=== PATIENT | male | born 1945 | race African-American/Black ===

== ENCOUNTER 2016-09-15 17:13 | Emergency (ER) | payer MEDICARE, OTHER ==
[~2016-09-15] VITALS: Ht 177.8 cm; Wt 112.9 kg
[~2016-09-15 17:13] MED LIST: AMLO5TAB2 PO; ERGO1CAP23 PO; ESOM40CA39 PO; FEBU80TA PO; FURO20TA3 PO; IBUP800T24 PO; LEVO150T10 PO; LISI-646 PO; LORA-352 PO
[2016-09-15 17:30] VITALS: BP 152/97
[2016-09-15 18:45] LABS: Basophils # (auto) 0.2 uL; Basophils % (auto) 3.9 % (0.0-2.0); DEFINITIVE VIEW TRANSMISSION; Eosinophils # (auto) 0.3 uL; Eosinophils % (auto) 4.7 % (0.0-7.0); Hematocrit 35.2 % (41.0-53.0); Hemoglobin 11.1 g/dL (13.5-17.5); Lymphocytes # (auto) 2.5 uL; Mean Corpuscular Hemoglobin 28.4 pg (28.0-32.0); Mean Corpuscular Hgb Conc. 31.5 g/dL (32.0-36.0); Mean Corpuscular Volume 90.3 fL (80.0-100.0); Mean Platelet Volume 9.1 fL (7.4-10.4); Monocytes # (auto) 0.5 uL; Monocytes % (auto) 7.8 % (0.0-12.0); Neutrophils # (auto) 2.6 uL; Neutrophils % (auto) 42.6 % (37.0-80.0); Platelet Count (auto) 240 10^3/uL (140-450); Red Cell Distribution Width 14.4 % (11.6-16.0); White Blood Cell 6.2 10^3/uL (4.4-10.8)
[2016-09-15 18:59] LABS: Albumin 3.6 g/dL (3.4-5.0); BUN/Creatinine Ratio 11.7; Calcium 8.5 mg/dL (8.5-10.1)
[2016-09-15 19:05] LABS: Bilirubin, Total 0.2 mg/dL (0.2-1.0)
== END 2016-09-15 23:39 | disposition left against medical advice (07) ==
LOC: ER 17:22
DX: R79.9 Abnormal finding of blood chemistry, unspecified (principal); Z53.21 Procedure and treatment not carried out due to patient leaving prior to being seen by health care provider
CPT/HCPCS: 36415; 80053; 84484; 85025; 93005

== ENCOUNTER → 2016-10-01 | Outpatient (CLI) | payer MEDICARE, OTHER ==
[2016-10-01 15:40] LABS: Basophils # (auto) 0.1 uL; Basophils % (auto) 0.9 % (0.0-2.0); Eosinophils # (auto) 0.3 uL; Hematocrit 37.6 % (41.0-53.0); Lymphocytes # (auto) 2.5 uL; Lymphocytes % (auto) 41.8 % (10.0-50.0); Mean Corpuscular Hemoglobin 28.7 pg (28.0-32.0); Mean Corpuscular Volume 89.8 fL (80.0-100.0); Mean Platelet Volume 8.9 fL (7.4-10.4); Monocytes # (auto) 0.4 uL; Monocytes % (auto) 6.8 % (0.0-12.0); Neutrophils # (auto) 2.7 uL; Neutrophils % (auto) 45.5 % (37.0-80.0); Platelet Count (auto) 238 10^3/uL (140-450); Red Cell Distribution Width 14.1 % (11.6-16.0); White Blood Cell 5.9 10^3/uL (4.4-10.8)
[2016-10-01 15:48] LABS: Urine Bilirubin Negative (Negative); Urine Blood Negative /uL (Negative); Urine Color Yellow (Yellow); Urine Glucose Normal (Normal); Urine Hyaline Cast FEW /lpf (0 - 2); Urine Ketone Negative (Negative); Urine Nitrite Negative (Negative); Urine RBC <1 /hpf (0 - 3); Urine Urobilinogen Normal (Negative); Urine pH 5.5 (5.0-8.0)
[2016-10-01 15:54] LABS: Calcium 9.4 mg/dL (8.5-10.1); Potassium 4.1 mmol/L (3.5-5.1)
[2016-10-01 15:57] LABS: INR 1.01 (0.9-1.15); Partial Thromboplastin Time 26.5 sec (22.64-33.71); Prothrombin Time 10.4 sec (9.37-12.3)
== END | disposition home or self-care (01) ==
LOC: LAB 15:18
DX: E78.5 Hyperlipidemia, unspecified (principal); I10 Essential (primary) hypertension; D68.9 Coagulation defect, unspecified; N39.0 Urinary tract infection, site not specified
CPT/HCPCS: 36415; 80048; 81001; 85025; 85049; 85610; 85730

== ENCOUNTER → 2016-10-24 | Outpatient (CLI) | payer MEDICARE, OTHER | END | disposition home or self-care (01) | LOC: OP 19:26 | PROVIDERS: ATTEND Psychiatry & Neurology Neurology | DX: G47.30 Sleep apnea, unspecified (principal) ==

== ENCOUNTER → 2016-11-14 | Outpatient (CLI) | payer MEDICARE, OTHER ==
[2016-11-14 08:20] LABS: Basophils # (auto) 0 uL; Basophils % (auto) 0.7 % (0.0-2.0); Eosinophils # (auto) 0.2 uL; Eosinophils % (auto) 5.7 % (0.0-7.0); Hematocrit 33.5 % (41.0-53.0); Hemoglobin 11.3 g/dL (13.5-17.5); Lymphocytes # (auto) 1.9 uL; Mean Corpuscular Hemoglobin 30.3 pg (28.0-32.0); Mean Corpuscular Hgb Conc. 33.6 g/dL (32.0-36.0); Mean Corpuscular Volume 90.1 fL (80.0-100.0); Mean Platelet Volume 9.2 fL (7.4-10.4); Monocytes # (auto) 0.5 uL; Monocytes % (auto) 12.3 % (0.0-12.0); Neutrophils # (auto) 1.6 uL; Neutrophils % (auto) 37.3 % (37.0-80.0); Platelet Count (auto) 206 10^3/uL (140-450); Red Cell Distribution Width 15.3 % (11.6-16.0); White Blood Cell 4.3 10^3/uL (4.4-10.8)
[2016-11-14 08:36] LABS: INR 0.98 (0.9-1.15); Partial Thromboplastin Time 25.7 sec (22.64-33.71); Prothrombin Time 10.1 sec (9.37-12.3)
[2016-11-14 08:59] LABS: Albumin 3.4 g/dL (3.4-5.0); BUN/Creatinine Ratio 15.1; Bilirubin, Total 0.4 mg/dL (0.2-1.0); Calcium 8.9 mg/dL (8.5-10.1); Potassium 4.2 mmol/L (3.5-5.1); Total Protein 7.7 g/dL (6.4-8.2)
== END | disposition home or self-care (01) ==
LOC: LAB 07:31
DX: M22.42 Chondromalacia patellae, left knee (principal); M17.12 Unilateral primary osteoarthritis, left knee
CPT/HCPCS: 36415; 80053; 85025; 85610; 85730

== ENCOUNTER → 2017-01-05 | Outpatient (CLI) | payer MEDICARE, OTHER | END | disposition home or self-care (01) | LOC: LAB 14:08 | PROVIDERS: ATTEND Urology | DX: R97.20 Elevated prostate specific antigen [PSA] (principal) | CPT/HCPCS: 84153; 84154 ==

== ENCOUNTER → 2017-01-14 | Outpatient (CLI) | payer MEDICARE, OTHER | END | disposition home or self-care (01) | LOC: LAB 14:50 | PROVIDERS: ATTEND Internal Medicine | DX: Z00.00 Encounter for general adult medical examination without abnormal findings (principal); E78.5 Hyperlipidemia, unspecified; E11.9 Type 2 diabetes mellitus without complications | CPT/HCPCS: 36415; 80061; 83036; 84443; 84550 ==

== ENCOUNTER → 2017-02-04 | Outpatient (CLI) | payer MEDICARE, OTHER | END | disposition home or self-care (01) | LOC: LAB 10:02 | PROVIDERS: ATTEND Internal Medicine | DX: E03.9 Hypothyroidism, unspecified (principal) | CPT/HCPCS: 36415; 84439; 84443; 84480 ==

== ENCOUNTER → 2017-11-06 | Outpatient (CLI) | payer MEDICARE, OTHER ==
[2017-11-06 11:49] LABS: Basophils # (auto) 0 uL; Eosinophils # (auto) 0.1 uL; Eosinophils % (auto) 3.2 % (0.0-7.0); Hematocrit 36.6 % (41.0-53.0); Hemoglobin 12.1 g/dL (13.5-17.5); Lymphocytes # (auto) 1.8 uL; Lymphocytes % (auto) 39.5 % (10.0-50.0); Mean Corpuscular Hemoglobin 30.5 pg (28.0-32.0); Mean Corpuscular Volume 92.4 fL (80.0-100.0); Monocytes # (auto) 0.4 uL; Monocytes % (auto) 8.7 % (0.0-12.0); Neutrophils # (auto) 2.2 uL; Neutrophils % (auto) 47.6 % (37.0-80.0); Nucleated Red Blood Cells % 0.2 %; Platelet Count (auto) 202 10^3/uL (140-450); Red Blood Cells 3.96 10^6/uL (4.5-5.90); Red Cell Distribution Width 13.6 % (11.8-14.3); White Blood Cell 4.6 10^3/uL (4.4-10.8)
[2017-11-06 12:35] LABS: Albumin 3.9 g/dL (3.4-5.0); BUN/Creatinine Ratio 14.6; Calcium 9.5 mg/dL (8.5-10.1); Potassium 4.4 mmol/L (3.5-5.1); Total Protein 8.8 g/dL (6.4-8.2); Uric Acid 8.8 mg/dL (3.5-7.2)
[2017-11-06 17:21] LABS: Urine Bacteria FEW /hpf (None Seen); Urine Blood Negative /uL (Negative); Urine Hyaline Cast FEW /lpf (0 - 2); Urine Mucus FEW (None Seen); Urine Specific Gravity 1.017 (1.001-1.035); Urine WBC 4 /hpf (0 - 3)
== END | disposition home or self-care (01) ==
LOC: LAB 11:27
PROVIDERS: ATTEND Physician Assistant
DX: E11.42 Type 2 diabetes mellitus with diabetic polyneuropathy (principal); E11.22 Type 2 diabetes mellitus with diabetic chronic kidney disease; N18.3 Chronic kidney disease, stage 3 (moderate); E03.9 Hypothyroidism, unspecified; I25.10 Atherosclerotic heart disease of native coronary artery without angina pectoris; N40.1 Benign prostatic hyperplasia with lower urinary tract symptoms; R97.20 Elevated prostate specific antigen [PSA]; Z87.39 Personal history of other diseases of the musculoskeletal system and connective tissue
CPT/HCPCS: 36415; 80053; 80061; 81001; 83036; 84153; 84154; 84443; 84550; 85025

== ENCOUNTER → 2017-12-10 | Outpatient (CLI) | payer MEDICARE, OTHER ==
[2017-12-10 11:37] LABS: Folate (Folic Acid) 12.22 ng/mL (5.38-24)
== END | disposition home or self-care (01) ==
LOC: LAB 10:32
PROVIDERS: ATTEND Psychiatry & Neurology Neurology
DX: E11.42 Type 2 diabetes mellitus with diabetic polyneuropathy (principal); E11.22 Type 2 diabetes mellitus with diabetic chronic kidney disease; I12.9 Hypertensive chronic kidney disease with stage 1 through stage 4 chronic kidney disease, or unspecified chronic kidney disease; N18.3 Chronic kidney disease, stage 3 (moderate)
CPT/HCPCS: 82607; 82746; 84155; 84165

== ENCOUNTER → 2018-05-20 | Outpatient (CLI) | payer MEDICARE, OTHER ==
[~2018-05-20] MED LIST changes: +AMLO5TAB13 PO; -AMLO5TAB2 PO
== END | disposition home or self-care (01) ==
LOC: LAB 15:55
PROVIDERS: ATTEND Urology
DX: R97.20 Elevated prostate specific antigen [PSA] (principal); I12.9 Hypertensive chronic kidney disease with stage 1 through stage 4 chronic kidney disease, or unspecified chronic kidney disease; N18.3 Chronic kidney disease, stage 3 (moderate)
CPT/HCPCS: 84154

== ENCOUNTER → 2019-01-25 | Outpatient (CLI) | payer MEDICARE, OTHER ==
[2019-01-25 10:36] LABS: Basophils # (auto) 0 uL; Basophils % (auto) 0.7 % (0.0-2.0); Eosinophils # (auto) 0.2 uL; Eosinophils % (auto) 5.3 % (0.0-7.0); Hematocrit 39.2 % (41.0-53.0); Hemoglobin 12.8 g/dL (13.5-17.5); Lymphocytes # (auto) 2.1 uL; Lymphocytes % (auto) 45.1 % (10.0-50.0); Mean Corpuscular Hemoglobin 29.7 pg (28.0-32.0); Mean Corpuscular Hgb Conc. 32.6 g/dL (32.0-36.0); Mean Corpuscular Volume 91.2 fL (80.0-100.0); Monocytes # (auto) 0.6 uL; Monocytes % (auto) 12.2 % (0.0-12.0); Neutrophils # (auto) 1.7 uL; Neutrophils % (auto) 36.7 % (37.0-80.0); Nucleated Red Blood Cells % 0.2 %; Platelet Count (auto) 237 10^3/uL (140-450); Red Cell Distribution Width 14.9 % (11.8-14.3); White Blood Cell 4.7 10^3/uL (4.4-10.8)
[2019-01-25 10:47] LABS: Albumin 3.6 g/dL (3.4-5.0); Calcium 9.2 mg/dL (8.5-10.1); Potassium 3.9 mmol/L (3.5-5.1); Urine Bacteria NONE SEEN /hpf (None Seen); Urine Blood Negative /uL (Negative); Urine Hyaline Cast MOD /lpf (0 - 2); Urine Mucus FEW (None Seen); Urine Specific Gravity 1.021 (1.001-1.035); Urine WBC 3 /hpf (0 - 3)
[2019-01-25 10:58] LABS: BUN/Creatinine Ratio 9.9
[2019-01-25 10:59] LABS: Bilirubin, Total 0.7 mg/dL (0.2-1.0); Total Protein 8.3 g/dL (6.4-8.2)
== END | disposition home or self-care (01) ==
LOC: LAB 09:31
PROVIDERS: ATTEND Physician Assistant
DX: I12.9 Hypertensive chronic kidney disease with stage 1 through stage 4 chronic kidney disease, or unspecified chronic kidney disease (principal); E11.22 Type 2 diabetes mellitus with diabetic chronic kidney disease; N18.3 Chronic kidney disease, stage 3 (moderate); E03.9 Hypothyroidism, unspecified; R97.20 Elevated prostate specific antigen [PSA]; K21.9 Gastro-esophageal reflux disease without esophagitis; I25.10 Atherosclerotic heart disease of native coronary artery without angina pectoris
CPT/HCPCS: 36415; 80053; 80061; 81001; 83036; 84153; 84154; 84443; 85025

== ENCOUNTER 2019-12-29 10:34 | Inpatient (IN) | payer MEDICARE, OTHER ==
[~2019-12-29] VITALS: Ht 180.3 cm; Wt 107.2 kg
[~2019-12-29 10:34] MED LIST changes: -AMLO5TAB13 PO; +AMLO5TAB15 PO
[2019-12-29] MEDS ORDERED: AZITHROMYCIN 500MG/ 250ML 250 ML IV ONE (11:00)
[2019-12-29] MEDS ORDERED: cefTRIAXone 1GM/50ML D5W 50 ML IV ONE (11:00)
[2019-12-29 11:22] LABS: Basophils # (auto) 0 10 ^3/uL (0-0.2); Basophils % (auto) 0.7 % (0.0-2.0); Eosinophils # (auto) 0.4 10 ^3/uL (0-0.8); Eosinophils % (auto) 6.7 % (0.0-7.0); Hematocrit 34.9 % (41.0-53.0); Hemoglobin 10.9 g/dL (13.5-17.5); Lymphocytes # (auto) 1.6 10 ^3/uL (0.4-5.4); Lymphocytes % (auto) 28.5 % (10.0-50.0); Mean Corpuscular Hgb Conc. 31.2 g/dL (32.0-36.0); Mean Corpuscular Volume 86.5 fL (80.0-100.0); Monocytes # (auto) 0.5 10 ^3/uL (0-1.3); Monocytes % (auto) 9.7 % (0.0-12.0); Neutrophils % (auto) 54.4 % (37.0-80.0); Nucleated Red Blood Cells % 2.7 %; Platelet Count (auto) 127 10^3/uL (140-450); Red Blood Cells 4.04 10^6/uL (4.5-5.90); Red Cell Distribution Width 17.7 % (11.8-14.3); White Blood Cell 5.6 10^3/uL (4.4-10.8)
[2019-12-29] MEDS ORDERED: ASCORBIC ACID 500 MG TAB PO ONE (12:00)
[2019-12-29] MEDS ORDERED: ZINC SULFATE 220mg CAP or TAB PO ONE (12:00)
[2019-12-29 12:07] LABS: Potassium 4.4 mmol/L (3.5-5.1)
[2019-12-29 12:19] LABS: Albumin 2.6 g/dL (3.4-5.0); BUN/Creatinine Ratio 11.6; Bilirubin, Total 1.8 mg/dL (0.2-1.0); Calcium 8.6 mg/dL (8.5-10.1); Total Protein 7.3 g/dL (6.4-8.2)
[2019-12-29] MEDS ORDERED: MORPHINE SULF INJ 2 MG/ML SYRINGE 1ML IV PRN (13:15)
[2019-12-29] MEDS ORDERED: NITROGLYCERIN 0.4 MG SL TAB SL PRN (13:15)
[2019-12-29] MEDS ORDERED: FUROSEMIDE 20 MG/2 ML VIAL IV ONE (13:30)
[2019-12-29] MEDS ORDERED: ALBUTEROL SULF 2.5 MG/0.5ML(0.5%) NEB SOLN NEB PRN (13:30)
[2019-12-29] MEDS ORDERED: LACTULOSE 20Gm/30ML SOLN PO PRN ×2 (13:30)
[2019-12-29] MEDS ORDERED: CARVEDILOL 3.125 MG TAB PO ONE (13:30)
[2019-12-29] MEDS ORDERED: DEXTROSE (50%) 50ML SYRG IV PRN (13:30)
[2019-12-29] MEDS ORDERED: ACETAMINOPHEN 500 MG TAB PO PRN (13:30)
[2019-12-29] MEDS ORDERED: PROMETHAZINE HCL 25 MG/ML 1ML IV PRN (13:30)
[2019-12-29] MEDS ORDERED: FUROSEMIDE 100 MG/10ML VIAL IV ONE (13:45)
[2019-12-29] MEDS: levoFLOXacin 750MG 150 ML IV SCH (14:00)
[2019-12-29] MEDS ORDERED: LEVOTHYROXINE SODIUM 50 MCG TAB PO ONE (15:00)
[2019-12-29] MEDS ORDERED: LEVOTHYROXINE SODIUM 100 MCG/5 ML INJ IV ONE (15:00)
[2019-12-29] MEDS ORDERED: ENOXAPARIN SOD 80 MG/0.8ML SYRINGE SC SCH (15:26)
[2019-12-29 16:00] VITALS: BP_SYST 106; BP_SYST 110; BP_DIAS 62; BP_DIAS 73
[2019-12-29] MEDS ORDERED: DIGOXIN (250MCG/ML) 2 ML AMPULE IV ONE (16:00)
[2019-12-29] MEDS: ACCU-CHEK COMFORT CURVE STRIP VI SCH ×2 (17:00→22:04)
[2019-12-29] MEDS: InsuLIN REG 1unit/0.01ml Soln (100units/ml) SC SCH ×2 (17:00→22:05)
[2019-12-29] MEDS: FUROSEMIDE 100 MG/10ML VIAL IV SCH (17:41)
[2019-12-29 18:01] LABS: Magnesium 2.3 mg/dL (1.6-2.6)
[2019-12-29 18:11] LABS: Free T3 1.75 pg/mL (2.3-4.2); Free T4 (Free Thyroxine) 1.71 ng/dL (0.89-1.76)
[2019-12-29 19:23] VITALS: BP 101/61
[2019-12-29 20:00] VITALS: BP 104/76
[2019-12-29] MEDS: ALBUTEROL SULF 2.5 MG/0.5ML(0.5%) NEB SOLN NEB SCH (21:43)
[2019-12-29] MEDS: IPRATROPIUM BROM 0.5 MG/2.5ML INH SOL NEB SCH (21:43)
[2019-12-29] MEDS: APIXABAN 2.5 MG TAB PO SCH (22:04)
[2019-12-29] MEDS: CARVEDILOL 3.125 MG TAB PO SCH (22:04)
[2019-12-29 23:26] LABS: Urine Bacteria FEW /hpf (None Seen); Urine Blood Negative /uL (Negative); Urine Hyaline Cast MANY /lpf (0 - 2); Urine Mucus FEW (None Seen); Urine Specific Gravity 1.013 (1.001-1.035); Urine WBC 3 /hpf (0 - 3)
[2019-12-29 23:44] LABS: Amphetamine Screen, Urine NEGATIVE (NEGATIVE); Barbiturate Scree,Urine NEGATIVE (NEGATIVE); Benzodiazephine Screen, Urine NEGATIVE (NEGATIVE); Cannabinoid Screen, Urine NEGATIVE (NEGATIVE); Cocaine Screen, Urine NEGATIVE (NEGATIVE); Opiate Scree,Urine NEGATIVE (NEGATIVE); Phencyclidine Screen, Urine NEGATIVE (NEGATIVE); Protein, Urine 68.5 mg/dL (0.0-11.9)
[2019-12-30] VITALS: BP 97/76
[2019-12-30 03:57] LABS: Basophils # (auto) 0 10 ^3/uL (0-0.2); Eosinophils # (auto) 0.4 10 ^3/uL (0-0.8); Hemoglobin 10.5 g/dL (13.5-17.5); Monocytes # (auto) 0.5 10 ^3/uL (0-1.3); White Blood Cell 4.5 10^3/uL (4.4-10.8)
[2019-12-30 03:59] LABS: Basophils % (auto) 0.8 % (0.0-2.0); Eosinophils % (auto) 9.3 % (0.0-7.0); Hematocrit 32.7 % (41.0-53.0); Lymphocytes # (auto) 1.6 10 ^3/uL (0.4-5.4); Lymphocytes % (auto) 36.8 % (10.0-50.0); Mean Corpuscular Hemoglobin 27.4 pg (28.0-32.0); Mean Corpuscular Hgb Conc. 32.1 g/dL (32.0-36.0); Mean Corpuscular Volume 85.6 fL (80.0-100.0); Neutrophils # (auto) 1.8 10 ^3/uL (1.6-8.6); Neutrophils % (auto) 41.1 % (37.0-80.0); Platelet Count (auto) 113 10^3/uL (140-450); Red Blood Cells 3.82 10^6/uL (4.5-5.90); Red Cell Distribution Width 18.1 % (11.8-14.3)
[2019-12-30 04:00] VITALS: BP 82/64
[2019-12-30 04:16] LABS: Albumin 2.4 g/dL (3.4-5.0); Calcium 8.1 mg/dL (8.5-10.1); Potassium 4.3 mmol/L (3.5-5.1)
[2019-12-30 04:20] LABS: BUN/Creatinine Ratio 12.1; Bilirubin, Total 1.2 mg/dL (0.2-1.0); Total Protein 6.8 g/dL (6.4-8.2)
[2019-12-30 04:36] LABS: Phosphorus 4.4 mg/dL (2.5-4.90); Uric Acid 15.7 mg/dL (3.5-7.2)
[2019-12-30] MEDS: FUROSEMIDE 100 MG/10ML VIAL IV SCH (06:03)
[2019-12-30] MEDS: InsuLIN REG 1unit/0.01ml Soln (100units/ml) SC SCH ×4 (06:03→22:00)
[2019-12-30] MEDS: LEVOTHYROXINE SODIUM 50 MCG TAB PO SCH (06:03)
[2019-12-30] MEDS: ACCU-CHEK COMFORT CURVE STRIP VI SCH ×4 (06:04→22:00)
[2019-12-30] MEDS: ALBUTEROL SULF 2.5 MG/0.5ML(0.5%) NEB SOLN NEB SCH ×3 (06:37→22:25)
[2019-12-30] MEDS: IPRATROPIUM BROM 0.5 MG/2.5ML INH SOL NEB SCH ×3 (06:37→22:25)
[2019-12-30 07:50] VITALS: BP 112/80
[2019-12-30] MEDS: amLODIPine BESYLATE 5 MG TAB PO SCH (09:35)
[2019-12-30] MEDS: APIXABAN 2.5 MG TAB PO SCH ×2 (09:36→22:00)
[2019-12-30] MEDS: CARVEDILOL 3.125 MG TAB PO SCH ×2 (09:36→22:00)
[2019-12-30] MEDS: NITROGLYCERIN 0.2MG/HR TOPICAL PATCH TD SCH (09:36)
[2019-12-30] MEDS ORDERED: FEBUXOSTAT 80 MG PO SCH (10:00)
[2019-12-30] MEDS: ALLOPURINOL 300 MG TAB PO SCH (10:45)
[2019-12-30 11:40] VITALS: BP 108/74
[2019-12-30] MEDS: DOPamine 1600MCG/ML D5W 250 ML IV SCH (12:29)
[2019-12-30] MEDS: BUMETANIDE INJECTION 12.5 MG in GIVE UN-DILUTED 0 ML IV SCH (12:50)
[2019-12-30] MEDS ORDERED: SODIUM CHLORIDE 0.9% 500 ML IV ONE (15:00)
[2019-12-30 15:40] VITALS: BP 84/64
[2019-12-31] VITALS (12 sets, daily range): BP systolic 95–113; BP diastolic 54–71
[2019-12-31] MEDS: ALBUTEROL SULF 2.5 MG/0.5ML(0.5%) NEB SOLN NEB SCH ×3 (06:09→21:45)
[2019-12-31] MEDS: IPRATROPIUM BROM 0.5 MG/2.5ML INH SOL NEB SCH ×3 (06:09→21:45)
[2019-12-31] MEDS: LEVOTHYROXINE SODIUM 50 MCG TAB PO SCH (07:00)
[2019-12-31] MEDS: InsuLIN REG 1unit/0.01ml Soln (100units/ml) SC SCH ×4 (07:00→21:56)
[2019-12-31] MEDS: BUMETANIDE INJECTION 12.5 MG in GIVE UN-DILUTED 0 ML IV SCH ×3 (07:29→21:56)
[2019-12-31] MEDS: ACCU-CHEK COMFORT CURVE STRIP VI SCH ×4 (07:29→21:56)
[2019-12-31] MEDS ORDERED: THROAT LOZENGES(CEPASTAT) MT PRN (08:30)
[2019-12-31] MEDS: DOPamine 1600MCG/ML D5W 250 ML IV SCH (08:32)
[2019-12-31] MEDS: amLODIPine BESYLATE 5 MG TAB PO SCH (09:23)
[2019-12-31] MEDS: CARVEDILOL 3.125 MG TAB PO SCH ×2 (09:23→22:00)
[2019-12-31] MEDS: NITROGLYCERIN 0.2MG/HR TOPICAL PATCH TD SCH (09:24)
[2019-12-31] MEDS: ALLOPURINOL 300 MG TAB PO SCH (09:28)
[2019-12-31] MEDS: APIXABAN 2.5 MG TAB PO SCH ×2 (09:28→21:53)
[2019-12-31 09:41] LABS: Basophils # (auto) 0 10 ^3/uL (0-0.2); Basophils % (auto) 0.8 % (0.0-2.0); Eosinophils # (auto) 0.4 10 ^3/uL (0-0.8); Hemoglobin 10.3 g/dL (13.5-17.5); Mean Corpuscular Hemoglobin 26.7 pg (28.0-32.0); Monocytes # (auto) 0.7 10 ^3/uL (0-1.3); Red Blood Cells 3.84 10^6/uL (4.5-5.90)
[2019-12-31 09:43] LABS: Eosinophils % (auto) 6.6 % (0.0-7.0); Hematocrit 32.6 % (41.0-53.0); Lymphocytes # (auto) 1.3 10 ^3/uL (0.4-5.4); Lymphocytes % (auto) 25.1 % (10.0-50.0); Mean Corpuscular Hgb Conc. 31.5 g/dL (32.0-36.0); Mean Corpuscular Volume 84.9 fL (80.0-100.0); Monocytes % (auto) 12.9 % (0.0-12.0); Neutrophils # (auto) 2.9 10 ^3/uL (1.6-8.6); Neutrophils % (auto) 54.6 % (37.0-80.0); Nucleated Red Blood Cells % 1.4 %; Platelet Count (auto) 137 10^3/uL (140-450); Red Cell Distribution Width 17.9 % (11.8-14.3); White Blood Cell 5.4 10^3/uL (4.4-10.8)
[2019-12-31] MEDS: NOREPINEPHRINE 8 MG/250ML KIT 250 ML IV SCH (09:45)
[2019-12-31 10:00] LABS: Albumin 2.6 g/dL (3.4-5.0); Calcium 8.4 mg/dL (8.5-10.1); Potassium 4.2 mmol/L (3.5-5.1)
[2019-12-31 10:03] LABS: Bilirubin, Total 1.3 mg/dL (0.2-1.0); Total Protein 7.3 g/dL (6.4-8.2)
[2019-12-31] MEDS ORDERED: ALBUMIN 25% 100 ML IV ONE (10:30)
[2019-12-31] MEDS: levoFLOXacin 750MG 150 ML IV SCH (13:24)
[2019-12-31] MEDS: ALBUMIN 25% 100 ML IV SCH (21:55)
[2020-01-01] VITALS (7 sets, daily range): BP systolic 88–108; BP diastolic 56–70
[2020-01-01] MEDS: ONDANSETRON HCL 4 MG/2 ML VIAL IV PRN ×3 (03:00→11:50)
[2020-01-01] MEDS: ACCU-CHEK COMFORT CURVE STRIP VI SCH ×4 (06:34→22:09)
[2020-01-01] MEDS: InsuLIN REG 1unit/0.01ml Soln (100units/ml) SC SCH ×4 (06:35→22:00)
[2020-01-01] MEDS: DOPamine 1600MCG/ML D5W 250 ML IV SCH (06:57)
[2020-01-01] MEDS: LEVOTHYROXINE SODIUM 50 MCG TAB PO SCH (06:57)
[2020-01-01] MEDS: ALBUTEROL SULF 2.5 MG/0.5ML(0.5%) NEB SOLN NEB SCH ×3 (06:59→21:52)
[2020-01-01] MEDS: IPRATROPIUM BROM 0.5 MG/2.5ML INH SOL NEB SCH ×3 (06:59→21:52)
[2020-01-01 07:08] LABS: Basophils # (auto) 0 10 ^3/uL (0-0.2); Basophils % (auto) 0.7 % (0.0-2.0); Eosinophils # (auto) 0.3 10 ^3/uL (0-0.8); Eosinophils % (auto) 5.2 % (0.0-7.0); Hematocrit 31.4 % (41.0-53.0); Hemoglobin 10.2 g/dL (13.5-17.5); Lymphocytes # (auto) 1.3 10 ^3/uL (0.4-5.4); Lymphocytes % (auto) 25.4 % (10.0-50.0); Mean Corpuscular Hemoglobin 27.6 pg (28.0-32.0); Mean Corpuscular Hgb Conc. 32.5 g/dL (32.0-36.0); Mean Corpuscular Volume 84.9 fL (80.0-100.0); Monocytes # (auto) 0.7 10 ^3/uL (0-1.3); Monocytes % (auto) 13.7 % (0.0-12.0); Neutrophils # (auto) 2.9 10 ^3/uL (1.6-8.6); Nucleated Red Blood Cells % 0.7 %; Platelet Count (auto) 116 10^3/uL (140-450); Red Blood Cells 3.69 10^6/uL (4.5-5.90); White Blood Cell 5.2 10^3/uL (4.4-10.8)
[2020-01-01 07:22] LABS: Potassium 4.4 mmol/L (3.5-5.1)
[2020-01-01 07:28] LABS: Albumin 2.9 g/dL (3.4-5.0); BUN/Creatinine Ratio 10.6; Calcium 8.6 mg/dL (8.5-10.1)
[2020-01-01 07:31] LABS: Bilirubin, Total 1.3 mg/dL (0.2-1.0); Total Protein 7.6 g/dL (6.4-8.2)
[2020-01-01] MEDS: NOREPINEPHRINE 8 MG/250ML KIT 250 ML IV SCH (09:45)
[2020-01-01] MEDS: amLODIPine BESYLATE 5 MG TAB PO SCH (10:00)
[2020-01-01] MEDS: NITROGLYCERIN 0.2MG/HR TOPICAL PATCH TD SCH (10:00)
[2020-01-01] MEDS: CARVEDILOL 3.125 MG TAB PO SCH ×2 (10:00→22:00)
[2020-01-01] MEDS: ALBUMIN 25% 100 ML IV SCH ×2 (10:32→22:08)
[2020-01-01] MEDS: APIXABAN 2.5 MG TAB PO SCH ×2 (10:33→22:08)
[2020-01-01] MEDS: DOCUSATE SOD 100 MG CAP PO SCH ×2 (10:33→22:08)
[2020-01-01] MEDS: PANTOPRAZOLE 40 MG/10 ML VIAL INJ IV SCH (10:33)
[2020-01-01] MEDS: ALLOPURINOL 300 MG TAB PO SCH (10:33)
[2020-01-01] MEDS: BUMETANIDE INJECTION 12.5 MG in GIVE UN-DILUTED 0 ML IV SCH (11:32)
[2020-01-02] VITALS: BP 99/64
[2020-01-02] MEDS: BUMETANIDE INJECTION 12.5 MG in GIVE UN-DILUTED 0 ML IV SCH ×2 (00:13→12:02)
[2020-01-02 03:12] LABS: Basophils # (auto) 0.1 10 ^3/uL (0-0.2); Eosinophils # (auto) 0.3 10 ^3/uL (0-0.8); Hemoglobin 9.9 g/dL (13.5-17.5); Neutrophils # (auto) 3.1 10 ^3/uL (1.6-8.6)
[2020-01-02 03:14] LABS: Basophils % (auto) 1.3 % (0.0-2.0); Eosinophils % (auto) 5.2 % (0.0-7.0); Lymphocytes # (auto) 1.6 10 ^3/uL (0.4-5.4); Mean Corpuscular Hemoglobin 26.9 pg (28.0-32.0); Mean Corpuscular Hgb Conc. 31.9 g/dL (32.0-36.0); Mean Corpuscular Volume 84.3 fL (80.0-100.0); Monocytes # (auto) 0.9 10 ^3/uL (0-1.3); Monocytes % (auto) 14.4 % (0.0-12.0); Neutrophils % (auto) 52.1 % (37.0-80.0); Nucleated Red Blood Cells % 0.9 %; Platelet Count (auto) 111 10^3/uL (140-450); Red Blood Cells 3.68 10^6/uL (4.5-5.90); Red Cell Distribution Width 17.8 % (11.8-14.3)
[2020-01-02 03:29] LABS: Albumin 3.1 g/dL (3.4-5.0); Calcium 8.5 mg/dL (8.5-10.1); Potassium 4.6 mmol/L (3.5-5.1)
[2020-01-02 03:33] LABS: BUN/Creatinine Ratio 12.5; Bilirubin, Total 1.4 mg/dL (0.2-1.0); Total Protein 7.7 g/dL (6.4-8.2)
[2020-01-02] MEDS: DOPamine 1600MCG/ML D5W 250 ML IV SCH (03:42)
[2020-01-02] MEDS: ALBUTEROL SULF 2.5 MG/0.5ML(0.5%) NEB SOLN NEB SCH ×3 (05:56→22:15)
[2020-01-02] MEDS: IPRATROPIUM BROM 0.5 MG/2.5ML INH SOL NEB SCH ×3 (05:56→22:15)
[2020-01-02] MEDS: ACCU-CHEK COMFORT CURVE STRIP VI SCH ×4 (06:32→21:51)
[2020-01-02] MEDS: InsuLIN REG 1unit/0.01ml Soln (100units/ml) SC SCH ×4 (06:33→21:52)
[2020-01-02] MEDS: LEVOTHYROXINE SODIUM 50 MCG TAB PO SCH (06:44)
[2020-01-02 08:00] VITALS: BP 124/69
[2020-01-02] MEDS: NOREPINEPHRINE 8 MG/250ML KIT 250 ML IV SCH (09:45)
[2020-01-02] MEDS: CARVEDILOL 3.125 MG TAB PO SCH ×2 (10:00→21:45)
[2020-01-02] MEDS: NITROGLYCERIN 0.2MG/HR TOPICAL PATCH TD SCH (10:00)
[2020-01-02] MEDS: amLODIPine BESYLATE 5 MG TAB PO SCH (10:00)
[2020-01-02] MEDS: ALBUMIN 25% 100 ML IV SCH (10:11)
[2020-01-02] MEDS: PANTOPRAZOLE 40 MG/10 ML VIAL INJ IV SCH (10:11)
[2020-01-02] MEDS: DOCUSATE SOD 100 MG CAP PO SCH ×2 (10:12→21:50)
[2020-01-02] MEDS: APIXABAN 2.5 MG TAB PO SCH ×2 (10:12→21:51)
[2020-01-02] MEDS: ALLOPURINOL 300 MG TAB PO SCH (10:12)
[2020-01-02 12:00] VITALS: BP 98/69
[2020-01-02] MEDS: levoFLOXacin 750MG 150 ML IV SCH (14:15)
[2020-01-02 14:50] LABS: INR 1.4 (0.9-1.15)
[2020-01-02 16:00] VITALS: BP 115/64
[2020-01-02 20:00] VITALS: BP 99/76
[2020-01-03] MEDS: BUMETANIDE INJECTION 12.5 MG in GIVE UN-DILUTED 0 ML IV SCH ×3 (03:04→23:52)
[2020-01-03] MEDS: DOPamine 1600MCG/ML D5W 250 ML IV SCH ×3 (03:11→23:57)
[2020-01-03 04:00] VITALS: BP 129/86
[2020-01-03 04:05] LABS: Basophils # (auto) 0 10 ^3/uL (0-0.2); Basophils % (auto) 0.6 % (0.0-2.0); Eosinophils # (auto) 0.2 10 ^3/uL (0-0.8); Eosinophils % (auto) 3.8 % (0.0-7.0); Hematocrit 32.1 % (41.0-53.0); Hemoglobin 10.3 g/dL (13.5-17.5); Lymphocytes # (auto) 1.5 10 ^3/uL (0.4-5.4); Lymphocytes % (auto) 24.5 % (10.0-50.0); Mean Corpuscular Hemoglobin 27.1 pg (28.0-32.0); Mean Corpuscular Volume 84.6 fL (80.0-100.0); Monocytes # (auto) 0.8 10 ^3/uL (0-1.3); Monocytes % (auto) 13.3 % (0.0-12.0); Neutrophils # (auto) 3.5 10 ^3/uL (1.6-8.6); Neutrophils % (auto) 57.8 % (37.0-80.0); Nucleated Red Blood Cells % 0.5 %; Platelet Count (auto) 108 10^3/uL (140-450)
[2020-01-03 04:25] LABS: Calcium 8.7 mg/dL (8.5-10.1); Potassium 4.5 mmol/L (3.5-5.1)
[2020-01-03 04:30] LABS: BUN/Creatinine Ratio 14.1; Bilirubin, Total 1.4 mg/dL (0.2-1.0); Total Protein 7.6 g/dL (6.4-8.2)
[2020-01-03] MEDS: IPRATROPIUM BROM 0.5 MG/2.5ML INH SOL NEB SCH ×3 (05:50→23:10)
[2020-01-03] MEDS: ALBUTEROL SULF 2.5 MG/0.5ML(0.5%) NEB SOLN NEB SCH ×3 (05:50→23:10)
[2020-01-03] MEDS: LACTULOSE 20Gm/30ML SOLN PO PRN ×2 (06:30→07:34)
[2020-01-03] MEDS: InsuLIN REG 1unit/0.01ml Soln (100units/ml) SC SCH ×4 (06:41→21:28)
[2020-01-03] MEDS: ACCU-CHEK COMFORT CURVE STRIP VI SCH ×4 (06:41→21:28)
[2020-01-03] MEDS: LEVOTHYROXINE SODIUM 50 MCG TAB PO SCH (06:41)
[2020-01-03 07:51] VITALS: BP 121/82
[2020-01-03] MEDS: traMADol HCL 50 MG TAB PO PRN ×2 (07:53→21:03)
[2020-01-03] MEDS: amLODIPine BESYLATE 5 MG TAB PO SCH (09:08)
[2020-01-03] MEDS: NITROGLYCERIN 0.2MG/HR TOPICAL PATCH TD SCH (09:08)
[2020-01-03] MEDS: levoFLOXacin 500 MG TAB PO SCH (09:33)
[2020-01-03] MEDS: PANTOPRAZOLE 40 MG/10 ML VIAL INJ IV SCH (09:33)
[2020-01-03] MEDS: ALLOPURINOL 300 MG TAB PO SCH (09:34)
[2020-01-03] MEDS: DOCUSATE SOD 100 MG CAP PO SCH ×2 (09:34→21:27)
[2020-01-03] MEDS: CARVEDILOL 3.125 MG TAB PO SCH ×2 (09:35→21:27)
[2020-01-03] MEDS: APIXABAN 2.5 MG TAB PO SCH ×2 (10:00→21:28)
[2020-01-03 12:00] VITALS: BP 121/82
[2020-01-03 14:45] VITALS: BP 128/90
[2020-01-03 17:00] VITALS: BP 138/77
[2020-01-03] MEDS: TEMAZEPAM 15 MG CAP PO PRN (21:28)
[2020-01-03 21:52] VITALS: BP 111/75
[2020-01-04 05:00] VITALS: BP 122/73
[2020-01-04] MEDS: LEVOTHYROXINE SODIUM 50 MCG TAB PO SCH (06:15)
[2020-01-04] MEDS: InsuLIN REG 1unit/0.01ml Soln (100units/ml) SC SCH ×4 (06:15→21:49)
[2020-01-04] MEDS: ACCU-CHEK COMFORT CURVE STRIP VI SCH ×4 (06:16→21:49)
[2020-01-04] MEDS: IPRATROPIUM BROM 0.5 MG/2.5ML INH SOL NEB SCH ×3 (07:19→21:35)
[2020-01-04] MEDS: ALBUTEROL SULF 2.5 MG/0.5ML(0.5%) NEB SOLN NEB SCH ×3 (07:19→21:35)
[2020-01-04 07:42] LABS: Albumin 2.7 g/dL (3.4-5.0); Calcium 8.9 mg/dL (8.5-10.1); Potassium 4.1 mmol/L (3.5-5.1); Uric Acid 14.9 mg/dL (3.5-7.2)
[2020-01-04 07:45] LABS: Bilirubin, Total 1.8 mg/dL (0.2-1.0); Total Protein 7.9 g/dL (6.4-8.2)
[2020-01-04 09:00] VITALS: BP_SYST 116; BP_SYST 120; BP_DIAS 61; BP_DIAS 68
[2020-01-04] MEDS: PANTOPRAZOLE 40 MG/10 ML VIAL INJ IV SCH (09:10)
[2020-01-04] MEDS: DOCUSATE SOD 100 MG CAP PO SCH ×2 (09:10→21:48)
[2020-01-04] MEDS: CARVEDILOL 3.125 MG TAB PO SCH ×2 (09:11→21:49)
[2020-01-04] MEDS: APIXABAN 2.5 MG TAB PO SCH ×2 (09:11→21:49)
[2020-01-04] MEDS: levoFLOXacin 500 MG TAB PO SCH (09:12)
[2020-01-04] MEDS: ALLOPURINOL 300 MG TAB PO SCH (09:12)
[2020-01-04] MEDS: NITROGLYCERIN 0.2MG/HR TOPICAL PATCH TD SCH (09:13)
[2020-01-04] MEDS: amLODIPine BESYLATE 5 MG TAB PO SCH (09:13)
[2020-01-04 12:31] VITALS: BP 108/68
[2020-01-04 15:19] VITALS: BP 108/68
[2020-01-04 16:39] VITALS: BP 106/77
[2020-01-04] MEDS: BUMETANIDE 2.5mg/10ml (0.25 mg/ml) INJ IV SCH (18:32)
[2020-01-04 22:00] VITALS: BP 114/71
[2020-01-04] MEDS: TEMAZEPAM 15 MG CAP PO PRN (22:08)
[2020-01-04] MEDS: DOPamine 1600MCG/ML D5W 250 ML IV SCH (22:08)
[2020-01-04] MEDS: traMADol HCL 50 MG TAB PO PRN (23:29)
[2020-01-05 05:43] VITALS: BP 104/67
[2020-01-05 06:06] LABS: Albumin 2.6 g/dL (3.4-5.0); Calcium 8.9 mg/dL (8.5-10.1); Potassium 3.9 mmol/L (3.5-5.1)
[2020-01-05] MEDS: LEVOTHYROXINE SODIUM 50 MCG TAB PO SCH (06:08)
[2020-01-05] MEDS: BUMETANIDE 2.5mg/10ml (0.25 mg/ml) INJ IV SCH ×2 (06:08→18:42)
[2020-01-05] MEDS: InsuLIN REG 1unit/0.01ml Soln (100units/ml) SC SCH ×4 (06:08→22:00)
[2020-01-05] MEDS: ACCU-CHEK COMFORT CURVE STRIP VI SCH ×4 (06:09→22:04)
[2020-01-05 06:11] LABS: BUN/Creatinine Ratio 19.7; Bilirubin, Total 1.6 mg/dL (0.2-1.0); Total Protein 7.5 g/dL (6.4-8.2)
[2020-01-05] MEDS: ALBUTEROL SULF 2.5 MG/0.5ML(0.5%) NEB SOLN NEB SCH ×3 (07:20→22:02)
[2020-01-05] MEDS: IPRATROPIUM BROM 0.5 MG/2.5ML INH SOL NEB SCH ×3 (07:20→22:02)
[2020-01-05 09:00] VITALS: BP 123/66
[2020-01-05] MEDS: NITROGLYCERIN 0.2MG/HR TOPICAL PATCH TD SCH (10:00)
[2020-01-05] MEDS: DOCUSATE SOD 100 MG CAP PO SCH ×2 (10:33→22:03)
[2020-01-05] MEDS: PANTOPRAZOLE 40 MG/10 ML VIAL INJ IV SCH (10:33)
[2020-01-05] MEDS: CARVEDILOL 3.125 MG TAB PO SCH ×2 (10:34→22:03)
[2020-01-05] MEDS: APIXABAN 2.5 MG TAB PO SCH ×2 (10:34→22:04)
[2020-01-05] MEDS: ALLOPURINOL 300 MG TAB PO SCH (10:35)
[2020-01-05] MEDS: amLODIPine BESYLATE 5 MG TAB PO SCH (10:35)
[2020-01-05] MEDS: levoFLOXacin 500 MG TAB PO SCH (10:35)
[2020-01-05 13:00] VITALS: BP 118/73
[2020-01-05] MEDS: traMADol HCL 50 MG TAB PO PRN (14:05)
[2020-01-05 17:00] VITALS: BP 112/63
[2020-01-05 22:00] VITALS: BP 104/66
[2020-01-06 05:00] VITALS: BP 107/73
[2020-01-06 06:03] LABS: Basophils # (auto) 0 10 ^3/uL (0-0.2); Basophils % (auto) 0.3 % (0.0-2.0); Eosinophils # (auto) 0.5 10 ^3/uL (0-0.8); Eosinophils % (auto) 8.2 % (0.0-7.0); Hematocrit 31.4 % (41.0-53.0); Hemoglobin 10.4 g/dL (13.5-17.5); Lymphocytes # (auto) 1.7 10 ^3/uL (0.4-5.4); Lymphocytes % (auto) 27.4 % (10.0-50.0); Mean Corpuscular Hemoglobin 27.4 pg (28.0-32.0); Mean Corpuscular Hgb Conc. 33.1 g/dL (32.0-36.0); Mean Corpuscular Volume 82.6 fL (80.0-100.0); Monocytes # (auto) 0.8 10 ^3/uL (0-1.3); Monocytes % (auto) 13.5 % (0.0-12.0); Neutrophils # (auto) 3.2 10 ^3/uL (1.6-8.6); Neutrophils % (auto) 50.6 % (37.0-80.0); Nucleated Red Blood Cells % 0.2 %; Platelet Count (auto) 113 10^3/uL (140-450); Red Blood Cells 3.81 10^6/uL (4.5-5.90); Red Cell Distribution Width 17.8 % (11.8-14.3); White Blood Cell 6.3 10^3/uL (4.4-10.8)
[2020-01-06] MEDS: LEVOTHYROXINE SODIUM 50 MCG TAB PO SCH (06:25)
[2020-01-06] MEDS: ACCU-CHEK COMFORT CURVE STRIP VI SCH ×4 (06:25→21:50)
[2020-01-06] MEDS: InsuLIN REG 1unit/0.01ml Soln (100units/ml) SC SCH ×4 (06:25→21:50)
[2020-01-06] MEDS: BUMETANIDE 2.5mg/10ml (0.25 mg/ml) INJ IV SCH ×2 (06:25→21:49)
[2020-01-06 06:29] LABS: Albumin 2.4 g/dL (3.4-5.0); Calcium 8.6 mg/dL (8.5-10.1)
[2020-01-06 06:33] LABS: BUN/Creatinine Ratio 22.3; Bilirubin, Total 1.4 mg/dL (0.2-1.0); Total Protein 7.3 g/dL (6.4-8.2)
[2020-01-06] MEDS: IPRATROPIUM BROM 0.5 MG/2.5ML INH SOL NEB SCH ×3 (06:53→22:20)
[2020-01-06] MEDS: ALBUTEROL SULF 2.5 MG/0.5ML(0.5%) NEB SOLN NEB SCH ×3 (06:53→22:21)
[2020-01-06] MEDS: traMADol HCL 50 MG TAB PO PRN (08:18)
[2020-01-06] MEDS ORDERED: DOPamine 1600MCG/ML D5W 250 ML IV SCH (09:00)
[2020-01-06] MEDS: PANTOPRAZOLE 40 MG/10 ML VIAL INJ IV SCH (09:41)
[2020-01-06] MEDS: levoFLOXacin 250 MG TAB PO SCH (09:42)
[2020-01-06] MEDS: ALLOPURINOL 100 MG TAB PO SCH (09:42)
[2020-01-06] MEDS: DOCUSATE SOD 100 MG CAP PO SCH ×2 (09:42→21:50)
[2020-01-06] MEDS: APIXABAN 2.5 MG TAB PO SCH ×2 (09:42→21:49)
[2020-01-06] MEDS: CARVEDILOL 3.125 MG TAB PO SCH ×2 (09:43→21:50)
[2020-01-06] MEDS: amLODIPine BESYLATE 5 MG TAB PO SCH (09:50)
[2020-01-06] MEDS: NITROGLYCERIN 0.2MG/HR TOPICAL PATCH TD SCH (09:51)
[2020-01-06] MEDS: ALBUMIN 25% 50 ML IV SCH ×2 (12:33→17:56)
[2020-01-06 13:00] VITALS: BP 120/67
[2020-01-06 17:17] VITALS: BP 109/69
[2020-01-06] MEDS: DOPamine 1600MCG/ML D5W 250 ML IV SCH ×2 (18:20→20:13)
[2020-01-06 22:00] VITALS: BP 102/74
[2020-01-07] MEDS: DOPamine 1600MCG/ML D5W 250 ML IV SCH ×2 (04:55→16:28)
[2020-01-07 05:00] VITALS: BP 107/67
[2020-01-07 06:43] LABS: Basophils # (auto) 0 10 ^3/uL (0-0.2); Eosinophils # (auto) 0.3 10 ^3/uL (0-0.8); Eosinophils % (auto) 5.5 % (0.0-7.0); Lymphocytes # (auto) 1.6 10 ^3/uL (0.4-5.4); Mean Corpuscular Hemoglobin 26.8 pg (28.0-32.0); Monocytes # (auto) 0.8 10 ^3/uL (0-1.3); White Blood Cell 5.9 10^3/uL (4.4-10.8)
[2020-01-07 06:45] LABS: Basophils % (auto) 0.7 % (0.0-2.0); Hemoglobin 10.4 g/dL (13.5-17.5); Lymphocytes % (auto) 26.5 % (10.0-50.0); Mean Corpuscular Hgb Conc. 32.6 g/dL (32.0-36.0); Mean Corpuscular Volume 82.2 fL (80.0-100.0); Monocytes % (auto) 13.5 % (0.0-12.0); Neutrophils # (auto) 3.2 10 ^3/uL (1.6-8.6); Neutrophils % (auto) 53.8 % (37.0-80.0); Nucleated Red Blood Cells % 0.3 %; Platelet Count (auto) 124 10^3/uL (140-450); Red Blood Cells 3.89 10^6/uL (4.5-5.90); Red Cell Distribution Width 17.8 % (11.8-14.3)
[2020-01-07] MEDS: LEVOTHYROXINE SODIUM 50 MCG TAB PO SCH (06:45)
[2020-01-07] MEDS: ACCU-CHEK COMFORT CURVE STRIP VI SCH ×4 (06:45→21:47)
[2020-01-07] MEDS: BUMETANIDE 2.5mg/10ml (0.25 mg/ml) INJ IV SCH ×2 (06:45→18:05)
[2020-01-07] MEDS: InsuLIN REG 1unit/0.01ml Soln (100units/ml) SC SCH ×4 (06:46→21:46)
[2020-01-07 06:58] LABS: Potassium 4.4 mmol/L (3.5-5.1)
[2020-01-07 07:03] LABS: Albumin 2.7 g/dL (3.4-5.0); BUN/Creatinine Ratio 22.1; Calcium 8.8 mg/dL (8.5-10.1)
[2020-01-07 07:05] LABS: Bilirubin, Total 1.6 mg/dL (0.2-1.0); Total Protein 7.6 g/dL (6.4-8.2)
[2020-01-07] MEDS: ALBUTEROL SULF 2.5 MG/0.5ML(0.5%) NEB SOLN NEB SCH ×3 (07:10→22:22)
[2020-01-07] MEDS: IPRATROPIUM BROM 0.5 MG/2.5ML INH SOL NEB SCH ×3 (07:10→22:22)
[2020-01-07 09:00] VITALS: BP 130/67
[2020-01-07] MEDS: ALLOPURINOL 100 MG TAB PO SCH (09:52)
[2020-01-07] MEDS: CARVEDILOL 3.125 MG TAB PO SCH ×2 (09:53→21:33)
[2020-01-07] MEDS: DOCUSATE SOD 100 MG CAP PO SCH ×2 (09:54→21:32)
[2020-01-07] MEDS: amLODIPine BESYLATE 5 MG TAB PO SCH (09:54)
[2020-01-07] MEDS: NITROGLYCERIN 0.2MG/HR TOPICAL PATCH TD SCH (09:55)
[2020-01-07] MEDS: levoFLOXacin 250 MG TAB PO SCH (09:56)
[2020-01-07] MEDS: APIXABAN 2.5 MG TAB PO SCH ×2 (09:56→21:32)
[2020-01-07] MEDS: PANTOPRAZOLE 40 MG/10 ML VIAL INJ IV SCH (09:56)
[2020-01-07] MEDS: LACTULOSE 20Gm/30ML SOLN PO PRN (11:48)
[2020-01-07 13:00] VITALS: BP 125/90
[2020-01-07] MEDS ORDERED: metOLazone 5 MG TAB PO ONE (13:30)
[2020-01-07 15:42] VITALS: BP 125/90
[2020-01-07 18:02] VITALS: BP 115/72
[2020-01-07 22:00] VITALS: BP 114/76
[2020-01-08] MEDS: DOPamine 1600MCG/ML D5W 250 ML IV SCH ×2 (02:27→14:32)
[2020-01-08 05:00] VITALS: BP 111/73
[2020-01-08] MEDS: BUMETANIDE 2.5mg/10ml (0.25 mg/ml) INJ IV SCH ×2 (05:52→18:14)
[2020-01-08] MEDS: LEVOTHYROXINE SODIUM 50 MCG TAB PO SCH (06:05)
[2020-01-08] MEDS: InsuLIN REG 1unit/0.01ml Soln (100units/ml) SC SCH ×4 (06:05→21:30)
[2020-01-08] MEDS: ACCU-CHEK COMFORT CURVE STRIP VI SCH ×4 (06:06→21:30)
[2020-01-08 06:10] LABS: Basophils # (auto) 0 10 ^3/uL (0-0.2); Eosinophils # (auto) 0.3 10 ^3/uL (0-0.8); Hemoglobin 11.2 g/dL (13.5-17.5); Lymphocytes # (auto) 1.3 10 ^3/uL (0.4-5.4); Nucleated Red Blood Cells % 0.2 %
[2020-01-08 06:12] LABS: Basophils % (auto) 0.8 % (0.0-2.0); Lymphocytes % (auto) 25.3 % (10.0-50.0); Mean Corpuscular Hgb Conc. 32.9 g/dL (32.0-36.0); Mean Corpuscular Volume 82.1 fL (80.0-100.0); Monocytes # (auto) 0.7 10 ^3/uL (0-1.3); Monocytes % (auto) 14.1 % (0.0-12.0); Neutrophils # (auto) 2.7 10 ^3/uL (1.6-8.6); Neutrophils % (auto) 53.8 % (37.0-80.0); Platelet Count (auto) 127 10^3/uL (140-450); Red Blood Cells 4.14 10^6/uL (4.5-5.90); Red Cell Distribution Width 17.9 % (11.8-14.3)
[2020-01-08 06:27] LABS: Albumin 2.7 g/dL (3.4-5.0); Calcium 9.1 mg/dL (8.5-10.1); Potassium 3.8 mmol/L (3.5-5.1)
[2020-01-08 06:31] LABS: BUN/Creatinine Ratio 24.7; Bilirubin, Total 1.6 mg/dL (0.2-1.0); Total Protein 7.9 g/dL (6.4-8.2)
[2020-01-08] MEDS: IPRATROPIUM BROM 0.5 MG/2.5ML INH SOL NEB SCH ×2 (06:40→14:20)
[2020-01-08] MEDS: ALBUTEROL SULF 2.5 MG/0.5ML(0.5%) NEB SOLN NEB SCH ×2 (06:40→14:20)
[2020-01-08 09:00] VITALS: BP 102/69
[2020-01-08] MEDS: traMADol HCL 50 MG TAB PO PRN (09:34)
[2020-01-08] MEDS: DOCUSATE SOD 100 MG CAP PO SCH ×2 (09:34→21:29)
[2020-01-08] MEDS: APIXABAN 2.5 MG TAB PO SCH ×2 (09:34→21:30)
[2020-01-08] MEDS: PANTOPRAZOLE 40 MG/10 ML VIAL INJ IV SCH (09:34)
[2020-01-08] MEDS: ALLOPURINOL 100 MG TAB PO SCH (09:34)
[2020-01-08] MEDS: amLODIPine BESYLATE 5 MG TAB PO SCH (09:35)
[2020-01-08] MEDS: CARVEDILOL 3.125 MG TAB PO SCH ×2 (09:35→21:30)
[2020-01-08] MEDS: levoFLOXacin 250 MG TAB PO SCH (09:36)
[2020-01-08] MEDS: NITROGLYCERIN 0.2MG/HR TOPICAL PATCH TD SCH (09:36)
[2020-01-08] MEDS: LACTULOSE 20Gm/30ML SOLN PO PRN (09:46)
[2020-01-08 13:00] VITALS: BP 104/63
[2020-01-08] MEDS ORDERED: metOLazone 5 MG TAB PO ONE (13:30)
[2020-01-08 17:00] VITALS: BP 100/63
[2020-01-08 22:07] VITALS: BP 104/59
[2020-01-09] MEDS: DOPamine 1600MCG/ML D5W 250 ML IV SCH ×3 (00:10→20:28)
[2020-01-09] MEDS: BUMETANIDE 2.5mg/10ml (0.25 mg/ml) INJ IV SCH (05:42)
[2020-01-09] MEDS: ALBUTEROL SULF 2.5 MG/0.5ML(0.5%) NEB SOLN NEB SCH ×4 (06:00→22:18)
[2020-01-09] MEDS: IPRATROPIUM BROM 0.5 MG/2.5ML INH SOL NEB SCH ×4 (06:00→22:18)
[2020-01-09] MEDS: InsuLIN REG 1unit/0.01ml Soln (100units/ml) SC SCH ×4 (06:05→22:00)
[2020-01-09] MEDS: LEVOTHYROXINE SODIUM 50 MCG TAB PO SCH (06:05)
[2020-01-09] MEDS: ACCU-CHEK COMFORT CURVE STRIP VI SCH ×4 (06:06→22:02)
[2020-01-09 06:17] LABS: Basophils # (auto) 0 10 ^3/uL (0-0.2); Basophils % (auto) 0.5 % (0.0-2.0); Eosinophils # (auto) 0.3 10 ^3/uL (0-0.8); Eosinophils % (auto) 5.6 % (0.0-7.0); Hematocrit 32.8 % (41.0-53.0); Hemoglobin 10.9 g/dL (13.5-17.5); Lymphocytes # (auto) 1.6 10 ^3/uL (0.4-5.4); Lymphocytes % (auto) 32.1 % (10.0-50.0); Mean Corpuscular Hemoglobin 27.1 pg (28.0-32.0); Mean Corpuscular Hgb Conc. 33.2 g/dL (32.0-36.0); Mean Corpuscular Volume 81.7 fL (80.0-100.0); Monocytes # (auto) 0.8 10 ^3/uL (0-1.3); Monocytes % (auto) 14.7 % (0.0-12.0); Neutrophils # (auto) 2.4 10 ^3/uL (1.6-8.6); Neutrophils % (auto) 47.1 % (37.0-80.0); Nucleated Red Blood Cells % 0.2 %; Platelet Count (auto) 133 10^3/uL (140-450); Red Blood Cells 4.01 10^6/uL (4.5-5.90); Red Cell Distribution Width 17.8 % (11.8-14.3); White Blood Cell 5.1 10^3/uL (4.4-10.8)
[2020-01-09 06:23] LABS: Albumin 2.6 g/dL (3.4-5.0); Calcium 9.1 mg/dL (8.5-10.1); Potassium 3.5 mmol/L (3.5-5.1)
[2020-01-09 06:27] LABS: Bilirubin, Total 1.6 mg/dL (0.2-1.0); Total Protein 7.7 g/dL (6.4-8.2)
[2020-01-09 08:10] VITALS: BP 114/65
[2020-01-09 08:56] VITALS: BP 114/65
[2020-01-09] MEDS: PANTOPRAZOLE 40 MG/10 ML VIAL INJ IV SCH (10:09)
[2020-01-09] MEDS: LACTULOSE 20Gm/30ML SOLN PO PRN ×2 (10:09→22:02)
[2020-01-09] MEDS: amLODIPine BESYLATE 5 MG TAB PO SCH (10:10)
[2020-01-09] MEDS: APIXABAN 2.5 MG TAB PO SCH ×2 (10:11→22:02)
[2020-01-09] MEDS: DOCUSATE SOD 100 MG CAP PO SCH ×2 (10:11→22:01)
[2020-01-09] MEDS: ALLOPURINOL 100 MG TAB PO SCH (10:11)
[2020-01-09] MEDS: CARVEDILOL 3.125 MG TAB PO SCH ×2 (10:11→22:00)
[2020-01-09] MEDS: levoFLOXacin 250 MG TAB PO SCH (10:11)
[2020-01-09] MEDS: NITROGLYCERIN 0.2MG/HR TOPICAL PATCH TD SCH (10:12)
[2020-01-09 12:37] VITALS: BP 115/72
[2020-01-09 17:24] VITALS: BP 117/66
[2020-01-09] MEDS: ONDANSETRON HCL 4 MG/2 ML VIAL IV PRN (22:03)
[2020-01-09 22:08] VITALS: BP 96/67
[2020-01-09] MEDS: TEMAZEPAM 15 MG CAP PO PRN (23:23)
[2020-01-10 05:27] VITALS: BP 93/64
[2020-01-10 06:05] LABS: Basophils # (auto) 0 10 ^3/uL (0-0.2); Basophils % (auto) 0.6 % (0.0-2.0); Eosinophils # (auto) 0.3 10 ^3/uL (0-0.8); Hematocrit 32.6 % (41.0-53.0); Hemoglobin 10.7 g/dL (13.5-17.5); Lymphocytes # (auto) 1.4 10 ^3/uL (0.4-5.4); Lymphocytes % (auto) 27.1 % (10.0-50.0); Mean Corpuscular Hemoglobin 26.8 pg (28.0-32.0); Mean Corpuscular Hgb Conc. 32.8 g/dL (32.0-36.0); Mean Corpuscular Volume 81.7 fL (80.0-100.0); Monocytes # (auto) 0.8 10 ^3/uL (0-1.3); Neutrophils # (auto) 2.6 10 ^3/uL (1.6-8.6); Neutrophils % (auto) 50.3 % (37.0-80.0); Nucleated Red Blood Cells % 0.2 %; Platelet Count (auto) 140 10^3/uL (140-450); Red Blood Cells 3.98 10^6/uL (4.5-5.90); Red Cell Distribution Width 17.9 % (11.8-14.3); White Blood Cell 5.1 10^3/uL (4.4-10.8)
[2020-01-10] MEDS: LEVOTHYROXINE SODIUM 50 MCG TAB PO SCH (06:10)
[2020-01-10] MEDS: InsuLIN REG 1unit/0.01ml Soln (100units/ml) SC SCH ×4 (06:10→21:23)
[2020-01-10] MEDS: ACCU-CHEK COMFORT CURVE STRIP VI SCH ×4 (06:11→21:23)
[2020-01-10 06:24] LABS: Calcium 9.2 mg/dL (8.5-10.1); Potassium 3.4 mmol/L (3.5-5.1)
[2020-01-10 06:28] LABS: BUN/Creatinine Ratio 25.6
[2020-01-10] MEDS: IPRATROPIUM BROM 0.5 MG/2.5ML INH SOL NEB SCH ×3 (06:28→22:51)
[2020-01-10] MEDS: ALBUTEROL SULF 2.5 MG/0.5ML(0.5%) NEB SOLN NEB SCH ×3 (06:28→22:51)
[2020-01-10 08:53] VITALS: BP 106/73
[2020-01-10] MEDS ORDERED: ALBUMIN 25% 50 ML IV ONE (09:15)
[2020-01-10] MEDS: PANTOPRAZOLE 40 MG/10 ML VIAL INJ IV SCH (09:18)
[2020-01-10] MEDS: LACTULOSE 20Gm/30ML SOLN PO PRN (09:18)
[2020-01-10] MEDS: levoFLOXacin 250 MG TAB PO SCH (09:18)
[2020-01-10] MEDS: NITROGLYCERIN 0.2MG/HR TOPICAL PATCH TD SCH (09:20)
[2020-01-10] MEDS: amLODIPine BESYLATE 5 MG TAB PO SCH (09:21)
[2020-01-10] MEDS: APIXABAN 2.5 MG TAB PO SCH ×2 (09:22→20:30)
[2020-01-10] MEDS: CARVEDILOL 3.125 MG TAB PO SCH ×2 (09:22→21:38)
[2020-01-10] MEDS: ALLOPURINOL 100 MG TAB PO SCH (09:23)
[2020-01-10] MEDS: DOCUSATE SOD 100 MG CAP PO SCH ×2 (09:23→20:29)
[2020-01-10] MEDS: DOPamine 1600MCG/ML D5W 250 ML IV SCH ×2 (09:24→21:22)
[2020-01-10] MEDS ORDERED: BUMETANIDE 2.5mg/10ml (0.25 mg/ml) INJ IV SCH (10:00)
[2020-01-10] MEDS: ACETYLCYSTEINE ORAL for CIN 20%(200MG/ML) 4ML PO SCH ×2 (11:57→21:23)
[2020-01-10] MEDS ORDERED: HYDROcodone-ACET 5/325MG TAB PO PRN (12:30)
[2020-01-10 12:46] VITALS: BP 100/65
[2020-01-10 16:52] VITALS: BP 112/72
[2020-01-10] MEDS ORDERED: POLYETHYLENE GLYCOL 17 GM PWDR PO ONE (17:30)
[2020-01-10] MEDS ORDERED: BISACODYL 10 MG RECT SUPP PR ONE (17:30)
[2020-01-10] MEDS ORDERED: FLEET ENEMA(ADULT) 135 ML PR ONE (20:00)
[2020-01-10 22:00] VITALS: BP 110/61
[2020-01-11] MEDS ORDERED: SODIUM CHLORIDE 0.9% 500 ML IV ONE (00:01)
[2020-01-11 05:05] VITALS: BP 108/65
[2020-01-11 05:20] LABS: Basophils # (auto) 0 10 ^3/uL (0-0.2); Basophils % (auto) 0.6 % (0.0-2.0); Eosinophils # (auto) 0.3 10 ^3/uL (0-0.8); Eosinophils % (auto) 4.1 % (0.0-7.0); Hematocrit 32.6 % (41.0-53.0); Hemoglobin 10.8 g/dL (13.5-17.5); Lymphocytes # (auto) 1.5 10 ^3/uL (0.4-5.4); Lymphocytes % (auto) 24.5 % (10.0-50.0); Mean Corpuscular Hemoglobin 27.1 pg (28.0-32.0); Mean Corpuscular Hgb Conc. 33.1 g/dL (32.0-36.0); Mean Corpuscular Volume 81.9 fL (80.0-100.0); Monocytes # (auto) 0.9 10 ^3/uL (0-1.3); Monocytes % (auto) 14.6 % (0.0-12.0); Neutrophils # (auto) 3.5 10 ^3/uL (1.6-8.6); Neutrophils % (auto) 56.2 % (37.0-80.0); Nucleated Red Blood Cells % 0.1 %; Platelet Count (auto) 154 10^3/uL (140-450); Red Blood Cells 3.98 10^6/uL (4.5-5.90); Red Cell Distribution Width 17.7 % (11.8-14.3); White Blood Cell 6.2 10^3/uL (4.4-10.8)
[2020-01-11 05:35] LABS: INR 1.49 (0.9-1.15); Partial Thromboplastin Time 42.3 sec (23.64-32.05)
[2020-01-11 05:36] LABS: BUN/Creatinine Ratio 25.3; Calcium 8.9 mg/dL (8.5-10.1); Potassium 3.6 mmol/L (3.5-5.1)
[2020-01-11] MEDS: IPRATROPIUM BROM 0.5 MG/2.5ML INH SOL NEB SCH ×3 (06:00→22:50)
[2020-01-11] MEDS: ALBUTEROL SULF 2.5 MG/0.5ML(0.5%) NEB SOLN NEB SCH ×3 (06:00→22:50)
[2020-01-11] MEDS: ACCU-CHEK COMFORT CURVE STRIP VI SCH ×4 (06:47→22:50)
[2020-01-11] MEDS: LEVOTHYROXINE SODIUM 50 MCG TAB PO SCH (06:52)
[2020-01-11] MEDS ORDERED: SODIUM CHL 0.9% 1000 ML BAG XX ONE (07:00)
[2020-01-11] MEDS: InsuLIN REG 1unit/0.01ml Soln (100units/ml) SC SCH ×4 (07:00→22:00)
[2020-01-11] MEDS: DOPamine 1600MCG/ML D5W 250 ML IV SCH ×2 (07:02→17:31)
[2020-01-11 09:00] VITALS: BP 102/74
[2020-01-11] MEDS ORDERED: HEPARIN SODIUM (PORCINE) 5000 UNITS/ML 1ML VIAL ONE ×2 (09:20→21:47)
[2020-01-11] MEDS ORDERED: fentaNYL CITRATE 100 MCG/2 ML VL ONE (09:20)
[2020-01-11] MEDS ORDERED: MIDAZOLAM HCL 1MG/1ML-2 ML VIAL ONE (09:21)
[2020-01-11] MEDS ORDERED: ANGIOMAX 250 MG VIAL IV ONE (09:24)
[2020-01-11] MEDS ORDERED: VERAPAMIL 2.5MG/ML INJ 2ML VIAL IV ONE (09:24)
[2020-01-11] MEDS ORDERED: SODIUM CHL 0.9% 0 ML ONE (09:25)
[2020-01-11] MEDS ORDERED: LIDOCAINE 2%HCL (LOCAL ANESTH.) INJ 20ML MDV ONE (09:25)
[2020-01-11] MEDS ORDERED: IODIXANOL 320MG/ML 100ML BTL IV ONE (09:25)
[2020-01-11] MEDS: NITROGLYCERIN 0.2MG/HR TOPICAL PATCH TD SCH (10:00)
[2020-01-11] MEDS: APIXABAN 2.5 MG TAB PO SCH (10:00)
[2020-01-11] MEDS: amLODIPine BESYLATE 5 MG TAB PO SCH (10:00)
[2020-01-11] MEDS ORDERED: PHENYLEPHRINE IV 0 ML IV ONE (10:29)
[2020-01-11] MEDS: POLYETHYLENE GLYCOL 17 GM PWDR PO SCH (12:26)
[2020-01-11] MEDS: levoFLOXacin 250 MG TAB PO SCH (12:27)
[2020-01-11] MEDS: DOCUSATE SOD 100 MG CAP PO SCH ×2 (12:27→23:42)
[2020-01-11] MEDS: CARVEDILOL 3.125 MG TAB PO SCH ×2 (12:28→23:42)
[2020-01-11] MEDS: PANTOPRAZOLE 40 MG/10 ML VIAL INJ IV SCH (12:28)
[2020-01-11] MEDS: ALLOPURINOL 100 MG TAB PO SCH (12:28)
[2020-01-11 17:00] VITALS: BP 92/52
[2020-01-11] MEDS ORDERED: HEPARIN SODIUM (PORCINE) 5000 UNITS/ML 1ML VIAL IV ONE (17:00)
[2020-01-11] MEDS: ACETYLCYSTEINE ORAL for CIN 20%(200MG/ML) 4ML PO SCH ×2 (17:00→23:42)
[2020-01-11 18:31] VITALS: BP 106/62
[2020-01-11] MEDS ORDERED: EPOETIN ALFA 10,000 UNIT/1 ML VIAL SC ONE (21:00)
[2020-01-11 21:29] VITALS: BP 97/73
[2020-01-11] MEDS ORDERED: HEPARIN 1,000 UNITS/ml 1ML VIAL ONE ×2 (21:55→21:58)
[2020-01-11 22:56] VITALS: BP 93/69
[2020-01-12] MEDS: DOPamine 1600MCG/ML D5W 250 ML IV SCH ×2 (05:27→17:52)
[2020-01-12 05:28] VITALS: BP 103/64
[2020-01-12] MEDS: LEVOTHYROXINE SODIUM 50 MCG TAB PO SCH (06:18)
[2020-01-12] MEDS: InsuLIN REG 1unit/0.01ml Soln (100units/ml) SC SCH ×4 (06:20→22:00)
[2020-01-12] MEDS: ACCU-CHEK COMFORT CURVE STRIP VI SCH ×4 (06:22→22:00)
[2020-01-12] MEDS: ALBUTEROL SULF 2.5 MG/0.5ML(0.5%) NEB SOLN NEB SCH ×3 (06:57→22:17)
[2020-01-12] MEDS: IPRATROPIUM BROM 0.5 MG/2.5ML INH SOL NEB SCH ×3 (06:57→22:17)
[2020-01-12 07:06] LABS: Basophils # (auto) 0 10 ^3/uL (0-0.2); Basophils % (auto) 0.8 % (0.0-2.0); Eosinophils # (auto) 0.2 10 ^3/uL (0-0.8); Hematocrit 34.3 % (41.0-53.0); Lymphocytes # (auto) 1.4 10 ^3/uL (0.4-5.4); Lymphocytes % (auto) 26.1 % (10.0-50.0); Mean Corpuscular Hemoglobin 26.3 pg (28.0-32.0); Mean Corpuscular Hgb Conc. 32.1 g/dL (32.0-36.0); Mean Corpuscular Volume 81.9 fL (80.0-100.0); Monocytes # (auto) 0.8 10 ^3/uL (0-1.3); Monocytes % (auto) 14.7 % (0.0-12.0); Neutrophils # (auto) 2.9 10 ^3/uL (1.6-8.6); Neutrophils % (auto) 54.4 % (37.0-80.0); Nucleated Red Blood Cells % 0.1 %; Platelet Count (auto) 159 10^3/uL (140-450); Red Blood Cells 4.18 10^6/uL (4.5-5.90); Red Cell Distribution Width 17.9 % (11.8-14.3); White Blood Cell 5.4 10^3/uL (4.4-10.8)
[2020-01-12 07:28] LABS: Albumin 2.6 g/dL (3.4-5.0); Calcium 8.4 mg/dL (8.5-10.1); Potassium 3.8 mmol/L (3.5-5.1)
[2020-01-12 07:32] LABS: BUN/Creatinine Ratio 21.5; Bilirubin, Total 1.8 mg/dL (0.2-1.0); Total Protein 7.8 g/dL (6.4-8.2)
[2020-01-12] MEDS ORDERED: ALBUMIN 25% 100 ML IV ONE (08:45)
[2020-01-12] MEDS ORDERED: SODIUM CHL 0.9% 1000 ML BAG XX ONE (08:45)
[2020-01-12] MEDS: PANTOPRAZOLE 40 MG/10 ML VIAL INJ IV SCH (09:39)
[2020-01-12] MEDS: FUROSEMIDE 100 MG/10ML VIAL IV SCH (09:39)
[2020-01-12] MEDS: DOCUSATE SOD 100 MG CAP PO SCH ×2 (09:41→22:42)
[2020-01-12] MEDS: ALLOPURINOL 100 MG TAB PO SCH (09:41)
[2020-01-12] MEDS: amLODIPine BESYLATE 5 MG TAB PO SCH (09:42)
[2020-01-12] MEDS: CARVEDILOL 3.125 MG TAB PO SCH ×2 (09:42→22:42)
[2020-01-12] MEDS: POLYETHYLENE GLYCOL 17 GM PWDR PO SCH (09:43)
[2020-01-12] MEDS: levoFLOXacin 250 MG TAB PO SCH (09:43)
[2020-01-12] MEDS: NITROGLYCERIN 0.2MG/HR TOPICAL PATCH TD SCH (09:44)
[2020-01-12 09:50] LABS: Hepatitis A Ab IgM Negative; Hepatitis B Core IgM Negative; Hepatitis B Surface Antigen Negative (Negative); Hepatitis C Antibody Negative (Negative)
[2020-01-12 13:00] VITALS: BP 95/58
[2020-01-12] MEDS ORDERED: METOPROLOL TARTRATE 1MG/1ML-5ML VIAL IV ONE (13:45)
[2020-01-12 17:00] VITALS: BP 119/63
[2020-01-12 20:00] VITALS: BP 119/69
[2020-01-12 21:31] VITALS: BP 119/69
[2020-01-12] MEDS: SACUBITRIL-VALSARTAN 24mg/26mg TAB PO SCH (22:42)
[2020-01-13] MEDS: DOPamine 1600MCG/ML D5W 250 ML IV SCH ×2 (03:36→16:16)
[2020-01-13 05:52] VITALS: BP 118/71
[2020-01-13] MEDS: IPRATROPIUM BROM 0.5 MG/2.5ML INH SOL NEB SCH ×3 (06:05→22:03)
[2020-01-13] MEDS: ALBUTEROL SULF 2.5 MG/0.5ML(0.5%) NEB SOLN NEB SCH ×3 (06:05→22:03)
[2020-01-13] MEDS: InsuLIN REG 1unit/0.01ml Soln (100units/ml) SC SCH ×4 (06:12→22:00)
[2020-01-13] MEDS: ACCU-CHEK COMFORT CURVE STRIP VI SCH ×4 (06:14→22:15)
[2020-01-13] MEDS: LEVOTHYROXINE SODIUM 50 MCG TAB PO SCH (06:14)
[2020-01-13 07:07] LABS: Basophils # (auto) 0 10 ^3/uL (0-0.2); Eosinophils # (auto) 0.2 10 ^3/uL (0-0.8); Hemoglobin 11.4 g/dL (13.5-17.5); Nucleated Red Blood Cells % 0.2 %
[2020-01-13 07:09] LABS: Basophils % (auto) 0.8 % (0.0-2.0); Eosinophils % (auto) 3.6 % (0.0-7.0); Hematocrit 36.3 % (41.0-53.0); Lymphocytes # (auto) 1.5 10 ^3/uL (0.4-5.4); Lymphocytes % (auto) 30.8 % (10.0-50.0); Mean Corpuscular Hgb Conc. 31.5 g/dL (32.0-36.0); Mean Corpuscular Volume 82.5 fL (80.0-100.0); Monocytes # (auto) 0.7 10 ^3/uL (0-1.3); Monocytes % (auto) 13.9 % (0.0-12.0); Neutrophils # (auto) 2.5 10 ^3/uL (1.6-8.6); Neutrophils % (auto) 50.9 % (37.0-80.0); Platelet Count (auto) 163 10^3/uL (140-450)
[2020-01-13 07:28] LABS: Albumin 2.9 g/dL (3.4-5.0); Calcium 8.6 mg/dL (8.5-10.1); Potassium 3.3 mmol/L (3.5-5.1)
[2020-01-13 07:33] LABS: Bilirubin, Total 2.1 mg/dL (0.2-1.0)
[2020-01-13 08:55] VITALS: BP 118/71
[2020-01-13 09:00] VITALS: BP 103/76
[2020-01-13] MEDS: ALLOPURINOL 100 MG TAB PO SCH (09:15)
[2020-01-13] MEDS: CARVEDILOL 3.125 MG TAB PO SCH ×2 (09:15→22:15)
[2020-01-13] MEDS: levoFLOXacin 250 MG TAB PO SCH (09:16)
[2020-01-13] MEDS: DOCUSATE SOD 100 MG CAP PO SCH ×2 (09:16→22:17)
[2020-01-13] MEDS: SACUBITRIL-VALSARTAN 24mg/26mg TAB PO SCH ×2 (09:16→22:11)
[2020-01-13] MEDS: POLYETHYLENE GLYCOL 17 GM PWDR PO SCH (09:17)
[2020-01-13] MEDS: PANTOPRAZOLE 40 MG/10 ML VIAL INJ IV SCH (09:18)
[2020-01-13] MEDS: amLODIPine BESYLATE 5 MG TAB PO SCH (09:18)
[2020-01-13] MEDS: FUROSEMIDE 100 MG/10ML VIAL IV SCH (09:19)
[2020-01-13] MEDS: NITROGLYCERIN 0.2MG/HR TOPICAL PATCH TD SCH (09:19)
[2020-01-13 12:41] VITALS: BP 124/66
[2020-01-13 17:00] VITALS: BP 107/71
[2020-01-13 22:00] VITALS: BP 103/71
[2020-01-14] MEDS: DOPamine 1600MCG/ML D5W 250 ML IV SCH ×2 (02:19→14:59)
[2020-01-14 05:00] VITALS: BP 109/75
[2020-01-14] MEDS: InsuLIN REG 1unit/0.01ml Soln (100units/ml) SC SCH ×4 (06:09→22:00)
[2020-01-14] MEDS: LEVOTHYROXINE SODIUM 50 MCG TAB PO SCH (06:10)
[2020-01-14] MEDS: ACCU-CHEK COMFORT CURVE STRIP VI SCH ×4 (06:10→22:30)
[2020-01-14] MEDS: ALBUTEROL SULF 2.5 MG/0.5ML(0.5%) NEB SOLN NEB SCH ×3 (06:14→22:24)
[2020-01-14] MEDS: IPRATROPIUM BROM 0.5 MG/2.5ML INH SOL NEB SCH ×3 (06:14→22:24)
[2020-01-14 07:09] LABS: Basophils # (auto) 0 10 ^3/uL (0-0.2); Eosinophils # (auto) 0.3 10 ^3/uL (0-0.8); Hemoglobin 11.2 g/dL (13.5-17.5); Nucleated Red Blood Cells % 0.2 %
[2020-01-14 07:12] LABS: Basophils % (auto) 0.5 % (0.0-2.0); Eosinophils % (auto) 5.8 % (0.0-7.0); Hematocrit 34.3 % (41.0-53.0); Lymphocytes # (auto) 1.7 10 ^3/uL (0.4-5.4); Lymphocytes % (auto) 28.7 % (10.0-50.0); Mean Corpuscular Hemoglobin 26.9 pg (28.0-32.0); Mean Corpuscular Hgb Conc. 32.5 g/dL (32.0-36.0); Mean Corpuscular Volume 82.6 fL (80.0-100.0); Monocytes # (auto) 0.9 10 ^3/uL (0-1.3); Monocytes % (auto) 15.5 % (0.0-12.0); Neutrophils # (auto) 2.9 10 ^3/uL (1.6-8.6); Neutrophils % (auto) 49.5 % (37.0-80.0); Platelet Count (auto) 174 10^3/uL (140-450); Red Blood Cells 4.15 10^6/uL (4.5-5.90); Red Cell Distribution Width 18.3 % (11.8-14.3); White Blood Cell 5.8 10^3/uL (4.4-10.8)
[2020-01-14 07:35] LABS: Albumin 2.8 g/dL (3.4-5.0); Calcium 8.8 mg/dL (8.5-10.1); Potassium 3.4 mmol/L (3.5-5.1)
[2020-01-14 07:38] LABS: BUN/Creatinine Ratio 16.5; Bilirubin, Total 1.9 mg/dL (0.2-1.0); Total Protein 7.9 g/dL (6.4-8.2)
[2020-01-14 09:00] VITALS: BP 107/74
[2020-01-14] MEDS: NITROGLYCERIN 0.2MG/HR TOPICAL PATCH TD SCH (10:00)
[2020-01-14] MEDS ORDERED: POTASSIUM CHL 20 Meq TABLET PO ONE (10:45)
[2020-01-14] MEDS: FUROSEMIDE 100 MG/10ML VIAL IV SCH (11:44)
[2020-01-14] MEDS: DOCUSATE SOD 100 MG CAP PO SCH ×2 (11:44→22:30)
[2020-01-14] MEDS: PANTOPRAZOLE 40 MG/10 ML VIAL INJ IV SCH (11:44)
[2020-01-14] MEDS: POLYETHYLENE GLYCOL 17 GM PWDR PO SCH (11:45)
[2020-01-14] MEDS: CARVEDILOL 3.125 MG TAB PO SCH ×2 (11:45→22:00)
[2020-01-14] MEDS: SACUBITRIL-VALSARTAN 24mg/26mg TAB PO SCH (11:45)
[2020-01-14] MEDS: levoFLOXacin 250 MG TAB PO SCH (11:45)
[2020-01-14] MEDS: ALLOPURINOL 100 MG TAB PO SCH (11:46)
[2020-01-14] MEDS: amLODIPine BESYLATE 5 MG TAB PO SCH (11:46)
[2020-01-14 13:00] VITALS: BP_SYST 117; BP_SYST 145; BP_DIAS 78; BP_DIAS 81
[2020-01-14 17:00] VITALS: BP 131/67
[2020-01-14 22:56] VITALS: BP 90/55
[2020-01-15] MEDS: DOPamine 1600MCG/ML D5W 250 ML IV SCH ×3 (00:30→20:39)
[2020-01-15 05:38] VITALS: BP 106/82
[2020-01-15] MEDS: ALBUTEROL SULF 2.5 MG/0.5ML(0.5%) NEB SOLN NEB SCH ×3 (06:11→22:03)
[2020-01-15] MEDS: IPRATROPIUM BROM 0.5 MG/2.5ML INH SOL NEB SCH ×3 (06:11→22:03)
[2020-01-15] MEDS: InsuLIN REG 1unit/0.01ml Soln (100units/ml) SC SCH ×4 (06:20→22:00)
[2020-01-15] MEDS: ACCU-CHEK COMFORT CURVE STRIP VI SCH ×4 (06:20→22:09)
[2020-01-15] MEDS: LEVOTHYROXINE SODIUM 50 MCG TAB PO SCH (06:20)
[2020-01-15 06:50] LABS: Basophils # (auto) 0 10 ^3/uL (0-0.2); Eosinophils # (auto) 0.4 10 ^3/uL (0-0.8); Lymphocytes # (auto) 1.6 10 ^3/uL (0.4-5.4); Mean Corpuscular Hemoglobin 26.8 pg (28.0-32.0); Monocytes # (auto) 0.8 10 ^3/uL (0-1.3); Neutrophils # (auto) 3.3 10 ^3/uL (1.6-8.6); Neutrophils % (auto) 54.2 % (37.0-80.0); Red Blood Cells 4.11 10^6/uL (4.5-5.90); Red Cell Distribution Width 18.3 % (11.8-14.3)
[2020-01-15 06:53] LABS: Basophils % (auto) 0.7 % (0.0-2.0); Hematocrit 33.9 % (41.0-53.0); Lymphocytes % (auto) 26.4 % (10.0-50.0); Mean Corpuscular Hgb Conc. 32.5 g/dL (32.0-36.0); Mean Corpuscular Volume 82.3 fL (80.0-100.0); Monocytes % (auto) 12.7 % (0.0-12.0); Nucleated Red Blood Cells % 0.2 %; Platelet Count (auto) 191 10^3/uL (140-450); White Blood Cell 6.1 10^3/uL (4.4-10.8)
[2020-01-15 07:09] LABS: Albumin 2.8 g/dL (3.4-5.0); BUN/Creatinine Ratio 16.2; Calcium 8.8 mg/dL (8.5-10.1); Potassium 3.3 mmol/L (3.5-5.1)
[2020-01-15 07:11] LABS: Bilirubin, Total 1.9 mg/dL (0.2-1.0); Total Protein 7.8 g/dL (6.4-8.2)
[2020-01-15 08:17] VITALS: BP 108/55
[2020-01-15] MEDS: NITROGLYCERIN 0.2MG/HR TOPICAL PATCH TD SCH (10:00)
[2020-01-15] MEDS: CARVEDILOL 3.125 MG TAB PO SCH ×2 (10:00→22:09)
[2020-01-15] MEDS: levoFLOXacin 250 MG TAB PO SCH (11:33)
[2020-01-15] MEDS: PANTOPRAZOLE 40 MG/10 ML VIAL INJ IV SCH (11:33)
[2020-01-15] MEDS: FUROSEMIDE 100 MG/10ML VIAL IV SCH (11:33)
[2020-01-15] MEDS: DOCUSATE SOD 100 MG CAP PO SCH ×2 (11:33→22:08)
[2020-01-15] MEDS: POLYETHYLENE GLYCOL 17 GM PWDR PO SCH (11:34)
[2020-01-15] MEDS: amLODIPine BESYLATE 5 MG TAB PO SCH (11:34)
[2020-01-15] MEDS: ALLOPURINOL 100 MG TAB PO SCH (11:34)
[2020-01-15 13:25] VITALS: BP 106/60
[2020-01-15 17:00] VITALS: BP 95/66
[2020-01-15 22:40] VITALS: BP 103/53
[2020-01-16 05:09] VITALS: BP 94/82
[2020-01-16] MEDS: LEVOTHYROXINE SODIUM 50 MCG TAB PO SCH (06:28)
[2020-01-16] MEDS: ACCU-CHEK COMFORT CURVE STRIP VI SCH ×2 (06:28→11:26)
[2020-01-16] MEDS: InsuLIN REG 1unit/0.01ml Soln (100units/ml) SC SCH ×2 (06:28→11:26)
[2020-01-16] MEDS: ALBUTEROL SULF 2.5 MG/0.5ML(0.5%) NEB SOLN NEB SCH ×2 (06:50→13:40)
[2020-01-16] MEDS: IPRATROPIUM BROM 0.5 MG/2.5ML INH SOL NEB SCH ×2 (06:50→13:40)
[2020-01-16 07:09] LABS: Platelet Count (auto) 217 10^3/uL (140-450)
[2020-01-16 07:13] LABS: Basophils # (auto) 0 10 ^3/uL (0-0.2); Basophils % (auto) 0.7 % (0.0-2.0); Eosinophils # (auto) 0.3 10 ^3/uL (0-0.8); Eosinophils % (auto) 5.4 % (0.0-7.0); Hematocrit 33.6 % (41.0-53.0); Hemoglobin 11.1 g/dL (13.5-17.5); Lymphocytes # (auto) 1.6 10 ^3/uL (0.4-5.4); Lymphocytes % (auto) 24.6 % (10.0-50.0); Mean Corpuscular Hemoglobin 26.9 pg (28.0-32.0); Mean Corpuscular Volume 81.6 fL (80.0-100.0); Monocytes % (auto) 15.7 % (0.0-12.0); Neutrophils # (auto) 3.4 10 ^3/uL (1.6-8.6); Neutrophils % (auto) 53.6 % (37.0-80.0); Nucleated Red Blood Cells % 0.1 %; Red Blood Cells 4.11 10^6/uL (4.5-5.90); Red Cell Distribution Width 18.3 % (11.8-14.3); White Blood Cell 6.3 10^3/uL (4.4-10.8)
[2020-01-16 07:26] LABS: Albumin 2.9 g/dL (3.4-5.0); Calcium 8.7 mg/dL (8.5-10.1); Potassium 3.5 mmol/L (3.5-5.1)
[2020-01-16 07:28] LABS: BUN/Creatinine Ratio 16.4
[2020-01-16 07:31] LABS: Bilirubin, Total 2.1 mg/dL (0.2-1.0); Total Protein 7.8 g/dL (6.4-8.2)
[2020-01-16] MEDS: DOPamine 1600MCG/ML D5W 250 ML IV SCH (07:54)
[2020-01-16 09:23] VITALS: BP 114/77
[2020-01-16] MEDS ORDERED: amLODIPine BESYLATE 5 MG TAB PO SCH (10:00)
[2020-01-16] MEDS: POLYETHYLENE GLYCOL 17 GM PWDR PO SCH (10:00)
[2020-01-16] MEDS: NITROGLYCERIN 0.2MG/HR TOPICAL PATCH TD SCH (10:00)
[2020-01-16] MEDS: FUROSEMIDE 100 MG/10ML VIAL IV SCH (10:00)
[2020-01-16 10:24] VITALS: BP 114/77
[2020-01-16] MEDS ORDERED: ALLOPURINOL 100 MG TAB PO SCH (10:30)
[2020-01-16] MEDS: PANTOPRAZOLE 40 MG/10 ML VIAL INJ IV SCH (11:15)
[2020-01-16] MEDS: DOCUSATE SOD 100 MG CAP PO SCH (11:15)
[2020-01-16] MEDS: CARVEDILOL 3.125 MG TAB PO SCH (11:16)
[2020-01-16] MEDS: levoFLOXacin 250 MG TAB PO SCH (11:17)
[2020-01-16 13:00] VITALS: BP 112/78
[2020-01-16 15:18] VITALS: BP 112/78
[2020-01-17] MEDS ORDERED: BUMETANIDE 2.5mg/10ml (0.25 mg/ml) INJ IV SCH (10:00)
== END 2020-01-16 17:25 | disposition home or self-care (01) | DRG 280 ==
LOC: EDUNIT# 10:34 → EDBD 10:34 → ER 10:34 → OVERFLOW 10:35 → DOU IN ICU 15:18 → TELE-WESTW 01-03 14:40
PROVIDERS: ADMIT Internal Medicine; ATTEND Family Medicine
PROC: 4A023N7 Measurement of Cardiac Sampling and Pressure, Left Heart, Percutaneous Approach (ICD-10-PCS; principal; 2020-01-11)
PROC: B2111ZZ Fluoroscopy of Multiple Coronary Arteries using Low Osmolar Contrast (ICD-10-PCS; 2020-01-11)
PROC: 5A1D70Z Performance of Urinary Filtration, Intermittent, Less than 6 Hours Per Day (ICD-10-PCS; 2020-01-11)
PROC: 5A1D70Z Performance of Urinary Filtration, Intermittent, Less than 6 Hours Per Day (ICD-10-PCS; 2020-01-12)
DX: I13.0 Hypertensive heart and chronic kidney disease with heart failure and stage 1 through stage 4 chronic kidney disease, or unspecified chronic kidney disease (principal); I21.A1 Myocardial infarction type 2; I50.21 Acute systolic (congestive) heart failure; J18.9 Pneumonia, unspecified organism; N17.0 Acute kidney failure with tubular necrosis; J96.01 Acute respiratory failure with hypoxia; N18.4 Chronic kidney disease, stage 4 (severe); R18.8 Other ascites; J44.0 Chronic obstructive pulmonary disease with (acute) lower respiratory infection; I42.9 Cardiomyopathy, unspecified; I48.0 Paroxysmal atrial fibrillation; D69.6 Thrombocytopenia, unspecified; E66.01 Morbid (severe) obesity due to excess calories; D63.8 Anemia in other chronic diseases classified elsewhere; E11.42 Type 2 diabetes mellitus with diabetic polyneuropathy; E03.9 Hypothyroidism, unspecified; E11.22 Type 2 diabetes mellitus with diabetic chronic kidney disease; E11.40 Type 2 diabetes mellitus with diabetic neuropathy, unspecified; E88.09 Other disorders of plasma-protein metabolism, not elsewhere classified; I25.10 Atherosclerotic heart disease of native coronary artery without angina pectoris; M10.9 Gout, unspecified; N40.1 Benign prostatic hyperplasia with lower urinary tract symptoms; R33.8 Other retention of urine; Z99.2 Dependence on renal dialysis; Z03.818 Encounter for observation for suspected exposure to other biological agents ruled out; Z68.39 Body mass index [BMI] 39.0-39.9, adult
CPT/HCPCS: 36415; 71045; 76775; 80048; 80053; 80061; 80074; 80307; 81001; 82550; 82570; 82728; 82962; 83036; 83540; 83550; 83735; 83880; 84100; 84156; 84300; 84439; 84443; 84481; 84484; 84550; 85025; 85610; 85730; 86850; 86900; 86901; 87070; 87804; 87880; 90935; 93005; 93306; 93970; 94640; 96365; 96368; 96375; 97163; 99152; 99291; C9113; G0378; J0696; J0885; J1642; J1815; J1956; J2250; J2405; J3490; P9047; Q9967

== ENCOUNTER → 2020-02-01 | Outpatient (CLI) | payer MEDICARE, OTHER ==
[2020-02-01 15:41] LABS: Free T4 (Free Thyroxine) 1.63 ng/dL (0.89-1.76); T3 Total 0.63 ng/mL (0.60-1.81)
== END | disposition home or self-care (01) ==
LOC: LAB 14:58
PROVIDERS: ATTEND Physician Assistant
DX: E03.9 Hypothyroidism, unspecified (principal)
CPT/HCPCS: 36415; 84439; 84443; 84480